=== PATIENT | female | born 1980 | race Caucasian/White ===

== ENCOUNTER → 2017-08-07 | Outpatient (REF) | payer BC ==
[2015-04-15 09:50] VITALS: BMI 29.2
[~2017-08-07] MED LIST: ACET-1966 PO; ACET-2007 PO; ALPR-459 PO; AMLO1TAB PO; ASPI-816 PO; BUSP15TA69 PO; BUSP7.5T7 PO; BUTA1CAP51 PO; FERR159T PO; FERR325C2 PO; FEXO1TAB63 PO; FOLI0.4T56 PO; HYDR2TAB74 PO; IBUP-56 PO; IBUP200C74 PO; IBUP800T37 PO; ISOM1CAP2 PO; LOSA-57 PO; LOSA100T67 PO; MULT-1078 PO; MULT1TAB64 PO; NORE1TAB86 PO; ONDA4TAB97 PO; OXYC-373 PO; OXYC-865 PO; PARO-46 PO
== END ==
LOC: ZZSENDIN 12:00
PROVIDERS: ATTEND Family Medicine
DX: D22.5 Melanocytic nevi of trunk (principal)
CPT/HCPCS: 88305